=== PATIENT | female | born 1970 | race Caucasian/White ===

== ENCOUNTER 2025-03-13 14:01 | Emergency (ER) | payer BC ==
[~2025-03-13] VITALS: Ht 180.3 cm; Wt 93.1 kg
[~2025-03-13 14:01] MED LIST: BACDS PO; HYDR1TAB PO; NAP220T PO; ONDA8TAB9 PO
--- NOTE | 2025-03-13 14:25 | ELECTROCARDIOGRAPH REPORT ---
[facility] Test Date: 2025-03-13 Test Time: 14:04:25 Pat Name: TRIPP RAYO Department: EMERGENCY ROOM Room: Gender: F Gis Specialist: LAMONTE : 1970 Requested By: DERRICK HERNANDEZ Order Number: [id number] Reading MD: Measurements Intervals [place] Rate: 104 P: 70 MO: 131 QRS: 48 QRSD: 87 T: 55 QT: 319 QTc: 420 Interpretive Statements Sinus tachycardia Left atrial enlargement Please click the below link to view image of tracing.
[2025-03-13 15:00] LABS: BASOPHILS # (AUTO) 0.1 X10'3 (0-0.2); EOSINOPHILS # (AUTO) 0.3 X10'3 (0-0.9); EOSINOPHILS % (AUTO) 2.8 % (0-6); HEMATOCRIT 39.1 % (35.0-45.0); HEMOGLOBIN 13.2 g/dl (12.0-16.0); LYMPHOCYTES # (AUTO) 2.9 X10'3 (1.1-4.8); LYMPHOCYTES % (AUTO) 26.7 % (21-51); MEAN CORPUSCULAR HEMOGLOBIN 29.3 PG (27.0-31.0); MEAN CORPUSCULAR HGB CONC 33.8 g/dL (33.0-36.5); MEAN CORPUSCULAR VOLUME 86.6 FL (78-98); MEAN PLATELET VOLUME 6.9 FL (7.4-10.4); MONOCYTES # (AUTO) 0.8 X10'3 (0-0.9); MONOCYTES % (AUTO) 7.1 % (2-12); NEUTROPHILS # (AUTO) 6.7 X10'3 (1.8-7.7); NEUTROPHILS % (AUTO) 62.4 % (42-75); PLATELET COUNT 358 X10'3 (140-440); RED BLOOD COUNT 4.52 X10'6 (4.20-5.60); WHITE BLOOD COUNT 10.7 X10'3 (4.5-11.0)
--- NOTE | 2025-03-13 15:04 | RADIOLOGY REPORT ---
CHEST RADIOGRAPH Indication: syncope Technique: Single frontal view of the chest was obtained COMPARISON: None FINDINGS: Lines and Tubes: None Lungs: Clear Pleura: No effusion. No pneumothorax. Cardiomediastinal contours: Unremarkable Bones: Unremarkable IMPRESSION: No acute disease.
[2025-03-13 15:11] LABS: APTT 27 SECONDS (22-32); INR 1.1 INR; PROTHROMBIN TIME 10.9 SECONDS (9.0-12.0)
[2025-03-13 15:15] LABS: ALANINE AMINOTRANSFERASE 26 U/L (12-78); ALBUMIN 3.6 G/DL (3.4-5.0); ALBUMIN/GLOBULIN RATIO 0.9 (1.1-1.5); ALKALINE PHOSPHATASE 65 IU/L (46-116); ANION GAP 11 (8-16); ASPARTATE AMINO TRANSFERASE 20 U/L (10-37); BILIRUBIN,TOTAL 0.6 MG/DL (0.1-1.0); BLOOD UREA NITROGEN 14 MG/DL (7-18); BUN/CREATININE RATIO 15.6 (10.0-20.0); CALCIUM 9.3 MG/DL (8.5-10.1); CHLORIDE 108 MMOL/L (99-107); GLUCOSE 112 MG/DL (70-104); POTASSIUM 3.1 MMOL/L (3.5-5.1); SODIUM 142 MMOL/L (135-145); TOTAL CARBON DIOXIDE 23.2 MMOL/L (24-32); TOTAL PROTEIN 7.8 G/DL (6.4-8.2); eCRCL 81 ML/MIN; eGFR 65 ML/MIN
--- NOTE | 2025-03-13 15:21 | Physician Documentation ---
History of Present Illness ~ Chief Complaint: ALOC Stated Complaint: DIZZINESS Time Seen by MD: 14:20 Primary Medical Doctor: HANNAH MIDDLETON Mode of Arrival: POV HPI 54-year-old female presenting with heart palpitations and a near syncopal episode. Patient states that for the past two weeks she has had a cough and has also been feeling sick. She describes generalized weakness during this time as well as frequent episodes of nausea and vomiting. She states that today she had a coughing bout and then subsequently got very dizzy and felt like she was having palpitations. She drove herself in the emergency department and nearly passed out while in the waiting room. Currently she states that she feels nauseated many still slightly lightheaded. Additionally she states that she feels she has a lot of pressure in her chest. She denies any fever, chills or any other associated symptoms. Medication Reconciliation Allergies: Coded Allergies: No Known Allergies (Unverified , 10/25/12) Scheduled Azithromycin (Azithromycin), 1 TAB PO UD Hydrocodone/Acetaminophen (Vicodin 5-500 Tablet), 1 TAB PO Q4H, (Reported) Naproxen Sodium* (Aleve*), 220 MG PO BID PRN, (Reported) Ondansetron (Zofran Odt), 1 TABLET PO Q8H Prednisone* (Prednisone*), 2 TAB PO DAILY Sulfamethoxazole/Trimethoprim DS* (Bactrim DS Tab*), 1 TAB PO BID, (Reported) Past Medical History Past Medical History: No Pertinent History Past Surgical History: noncontributory, hysterectomy Alcohol Use: Rarely Drug Use: none Lives with: Spouse Lives In: Home Occupation: employed Review of Systems All Other Systems at this time: Reviewed and Negative Physical Exam Vital Signs: Temperature: 98.8, Source: Oral, Heart Rate: 100, Respiratory Rate: 18, BP: 160/101, Pulse Oximetry: 97, Weight: 93.100 Oxygen Flow Rate: 0 Physical Exam I have reviewed the triage vitals. CONST: Well developed and well nourished. In no acute distress HENT: Head Atraumatic EYES: Pupils are equal, round and reactive to light. Normal conjunctiva NECK: Normal range of motion. Supple. CARDIO: Normal rate and regular rhythm. No murmurs, rubs, or gallops. S1, S2. PULM/CHEST: No respiratory distress. Lungs clear to auscultation. No wheeze ABD: Soft and nontender. Nondistended. Bowel sounds normal. No guarding. : Exam deferred MSK: No edema. No deformity. NEURO: Alert and oriented to person, place and time. Moving all extremities SKIN: Warm and dry. PSYCH: Normal mood and affect. Good eye contact. Progress Results/Orders Results/Orders Orders - DERRICK HERNANDEZ MD Chest,Single View (03/13/25 14:52) Ct Head (03/13/25 14:21) Hs Troponin I W Calculations (03/13/25 17:21) Drug Screen, Urine (03/13/25 14:21) Completed Orders - DERRICK HERNANDEZ MD Electrocardiogram (03/13/25 14:21) Type And Screen (03/13/25 14:21) Cbc/Diff (03/13/25 14:21) Pt Inr (03/13/25 14:21) PTT (03/13/25 14:21) Chest,Single View (03/13/25 14:52) PBNP (03/13/25 14:21) MG (03/13/25 14:21) Ct Head (03/13/25 14:21) CMP (03/13/25 14:21) Hs Troponin I W Calculations (03/13/25 14:21) Hs Troponin I W Calculations (03/13/25 16:21) Ethanol (03/13/25 14:21) Ammonia (03/13/25 14:21) Potassium Cl Sr Tablet (K-Dur Tablet) (03/13/25 15:15) Normal Saline 1000ml (Sodium Chloride 10 (03/13/25 15:20) Ondansetron Inj. (Zofran 4mg/2ml Vial) (03/13/25 15:40) Medications Received in ER Medications (Trade) Dose Ordered Sig/Christophe Route PRN Reason Start Time Stop Time Status Last Admin Dose Admin (K-DUR tablet) 40 meq ONCE STAT PO 03/13/25 15:15 03/13/25 15:18 DC 03/13/25 15:22 40 MEQ Sodium Chloride 1,000 ml @ 1,000 mls/hr ONCE ONCE IV 03/13/25 15:20 03/13/25 16:19 DC 03/13/25 15:48 1,000 MLS/HR (Zofran 4mg/2ml vial) 4 mg ONCE ONCE IV 03/13/25 15:40 03/13/25 15:41 DC 03/13/25 15:48 4 MG Vital Signs 03/13/25 03/13/25 03/13/25 03/13/25 14:15 14:36 14:48 16:39 Temp 98.8 Pulse 96 100 89 Resp 11 18 18 18 B/P (MAP) 150/95 160/101 (120) Pulse Ox 97 97 98 O2 Flow Rate 0 0 0 03/13/25 18:06 Pulse 81 Resp 16 B/P (MAP) 134/90 (105) Pulse Ox 98 O2 Flow Rate 0 Laboratory Tests Test 03/13/25 14:36 03/13/25 16:29 White Blood Count 10.7 Red Blood Count 4.52 Hemoglobin 13.2 Hematocrit 39.1 Mean Corpuscular Volume 86.6 Mean Corpuscular Hemoglobin 29.3 Mean Corpuscular Hemoglobin Concent 33.8 Red Cell Distribution Width 13.0 Platelet Count 358 Mean Platelet Volume 6.9 L Neutrophils (%) (Auto) 62.4 Lymphocytes (%) (Auto) 26.7 Monocytes (%) (Auto) 7.1 Eosinophils (%) (Auto) 2.8 Basophils (%) (Auto) 1.0 Neutrophils # (Auto) 6.7 Lymphocytes # (Auto) 2.9 Monocytes # (Auto) 0.8 Eosinophils # (Auto) 0.3 Basophils # (Auto) 0.1 CBC Comment Prothrombin Time 10.9 INR International Normalized Ratio 1.1 Activated Partial Thromboplast Time 27 Coagulation Comments Sodium Level 142 Potassium Level 3.1 L Chloride Level 108 H Carbon Dioxide Level 23.2 L Anion Gap 11 Blood Urea Nitrogen 14 Creatinine 0.90 Estimated GFR/1.73 m2 65 BUN/Creatinine Ratio 15.6 Glucose Level 112 H Calcium Level 9.3 Magnesium Level 1.9 Total Bilirubin 0.6 Aspartate Amino Transf (AST/SGOT) 20 Alanine Aminotransferase (ALT/SGPT) 26 Alkaline Phosphatase 65 Ammonia 22 Troponin I High Sensitivity 7 5 Pro-B-Type Natriuretic Peptide 89 Total Protein 7.8 Albumin 3.6 Globulin 4.2 Albumin/Globulin Ratio 0.9 L Chemistry Comments Ethyl Alcohol Level < 10 Troponin I High Sens Percent Delta 28 Troponin I Hi Sens Absolute Change -2 EKG/XRAY/CT/US/VASC/MRI EKG : Additional Comment EKG as interpreted by ED MD indicating sinus tachycardia with a rate of 104 beats per minute, no signs of ischemia, normal axis Chest X-Ray : Additional Comments CHEST RADIOGRAPH Indication: syncope Technique: Single frontal view of the chest was obtained COMPARISON: None FINDINGS: Lines and Tubes: None Lungs: Clear Pleura: No effusion. No pneumothorax. Cardiomediastinal contours: Unremarkable Bones: Unremarkable IMPRESSION: No acute disease. : Impression CT CT HEAD INDICATION: syncope EXAM DATE: 03/13/2025 03:09 PM COMPARISON: None RADIATION DOSE: CTDIvol: 57 mGy, DLP: 1075 mGy*cm PROCEDURE: CT scans of the head were obtained from the vertex to the skull base. Sagittal and coronal reconstructions were provided. All CT scans at this medical facility are performed using dose modulation techniques as appropriate to a performed exam including the following: Automated exposure control was utilized; adjustment of the MA and/or KV according to patient size; and use of iterative reconstruction technique. FINDINGS: There is sulcal and ventricular prominence. The brainshows normal morphology and mccall-white matter differentiation, without intracranial hemorrhage, extra-axial fluid collection, mass effect or acute large vessel infarct. The ventricles are normal in size. The basal cisterns are patent. The skull and visible facial bones are intact. The paranasal sinuses, mastoid air cells and middle ear cavities are well-aerated. The soft tissues of the scalp are unremarkable. IMPRESSION: No acute intracranial abnormality. Medical Decision Making Additional Information 54-year-old female presenting for a near syncopal event and palpitations. Her lab workup is grossly unremarkable aside from a slightly low potassium level. The patient has been vomiting and has felt sick with a upper respiratory infection for the past 2-[address] of the head was also unremarkable. EKG was unconcerning. Patient was medicated with 1 L of IV normal saline as well as IV Zofran and also 20 mEq of p.o. potassium. On reassessment patient was asymptomatic and doing well. At this point in time she is stable and safe for discharge home. I advised the patient that likely what happened was she has been dehydrated from vomiting and being sick. Patient was feeling much better after being medicated. Patient safe to be discharged home with a prescription for azithromycin for her bronchitis as well as some prednisone. I advised her to drink plenty of fluids. Monitor her symptoms for improvement and resolution. Advised to follow up with PCP in the next 2-5 days and return to ED with any acutely worsening symptoms. Departure Disposition: 01 HOME / SELF CARE / HOMELESS Impression: Primary Impression: Bronchitis Additional Impressions: Near syncope Dehydration Condition: Improved Discharge Instructions: Acute Bronchitis, Adult Additional Instructions: Take medication as prescribed. Ensure you are drinking plenty of fluids. Monitor your symptoms for improvement and resolution. Follow up with PCP in the next 2-5 days. Return to the ED with any acutely worsening symptoms. Referrals: NO PRIMARY CARE PROVIDER (PCP) Prescriptions Prednisone* (Prednisone*) 20 Mg Tablet 2 TAB PO DAILY for 5 Days, #10 TAB Prov: DERRICK HERNANDEZ MD 03/13/25 Azithromycin (Azithromycin) 250 Mg Tablet 1 TAB PO UD for 5 Days, #6 TAB 2 the first day followed by 1 for days 2-5 Prov: DERRICK HERNANDEZ MD 03/13/25 Signature Scribe Signature: 1 Attestation: 1 DERRICK HERNANDEZ MD March 13, 2025 15:21
[2025-03-13 15:22] LABS: ETHANOL < 10 MG/DL (<10); MAGNESIUM 1.9 MG/DL (1.5-2.4); PRO BRAIN NATRIURETIC PEPTIDE 89 PG/ML (0-125)
[2025-03-13] MEDS: potassium Cl 20 mEq SR tablet PO STA (15:22)
--- NOTE | 2025-03-13 15:26 | RADIOLOGY REPORT ---
CT CT HEAD INDICATION: syncope EXAM DATE: 03/13/2025 03:09 PM COMPARISON: None RADIATION DOSE: CTDIvol: 57 mGy, DLP: 1075 mGy*cm PROCEDURE: CT scans of the head were obtained from the vertex to the skull base. Sagittal and coronal reconstructions were provided. All CT scans at this medical facility are performed using dose modulation techniques as appropriate t o a performed exam including the following: Automated exposure control was utilized; adjustment of th e MA and/or KV according to patient size; and use of iterative reconstruction technique. FINDINGS: There is sulcal and ventricular prominence. The brainshows normal morphology and mccall-whi te matter differentiation, without intracranial hemorrhage, extra-axial fluid collection, mass effect or acute large vessel infarct. The ventricles are normal in size. The basal cisterns are patent. The skull and visible facial bones are intact. The paranasal sinuses, mastoid air cells and middle ear c avities are well-aerated. The soft tissues of the scalp are unremarkable. IMPRESSION: No acute intracranial abnormality.
[2025-03-13] MEDS: ondansetron/PF 4mg/2ml inj IV ONE (15:48)
[2025-03-13] MEDS: normal saline 1000ml 1,000 ML IV ONE (15:48)
[2025-03-13 18:06] VITALS: BP 134/90; PULSE 81; RESP 16; O2SAT 98
[2025-03-13] MEDS ORDERED: PRED20TA PO (18:11)
[2025-03-13] MEDS ORDERED: AZIT-103 PO (18:11)
[2025-03-13 18:42] VITALS: TEMP 98.8
[2025-03-14] MEDS ORDERED: AZIT250T82 PO (06:24)
[2025-03-14] MEDS ORDERED: AZIT250T81 PO (11:04)
== END 2025-03-13 18:44 | disposition home or self-care (01) ==
LOC: ER 14:01
DX: J40 Bronchitis, not specified as acute or chronic (principal); E86.0 Dehydration; R00.2 Palpitations; R55 Syncope and collapse; Z90.710 Acquired absence of both cervix and uterus; Z79.899 Other long term (current) drug therapy
CPT/HCPCS: 36415; 70450; 71045; 80053; 80320; 82140; 83735; 83880; 84484; 85025; 85610; 85730; 86885; 86900; 86901; 93005; 96361; 96374; 99285; J2405; J7030